=== PATIENT | male | born 1945 | race Caucasian/White ===

== ENCOUNTER 2019-03-15 09:24 | Outpatient (CLI) | payer OTHER ==
[~2019-03-15 09:24] MED LIST: COZAAR25 MG PO; GABAPENTIN600 MG PO; ZOCOR40 MG PO
== END 2019-03-15 09:28 | disposition home or self-care (01) ==
LOC: SONOGRAMA 09:24
DX: E04.1 Nontoxic single thyroid nodule (principal)

== ENCOUNTER 2022-01-26 10:00 | Inpatient (IN) | payer OTHER ==
[~2022-01-26] VITALS: Ht 170.2 cm; Wt 72.6 kg
== END 2022-02-01 19:41 | disposition home or self-care (01) | DRG 330 ==
LOC: SURG 01-28 07:54 → O/R 01-28 07:54 → SURH 01-28 10:00 → SURG 01-28 15:14 → SURH 01-28 18:00 → SURG 02-01 19:41
PROVIDERS: Surgery; ADMIT Surgery; ATTEND Surgery
PROC: 0WQF0ZZ Repair Abdominal Wall, Open Approach (ICD-10-PCS; 2022-01-28)
PROC: 0D1N0Z4 Bypass Sigmoid Colon to Cutaneous, Open Approach (ICD-10-PCS; principal; 2022-01-28 18:00)
PROC: 0DTN0ZZ Resection of Sigmoid Colon, Open Approach (ICD-10-PCS; 2022-01-28 18:00)
DX: K94.09 Other complications of colostomy (principal); K43.0 Incisional hernia with obstruction, without gangrene; K43.3 Parastomal hernia with obstruction, without gangrene; Z20.822 Contact with and (suspected) exposure to COVID-19

== ENCOUNTER 2022-11-25 09:45 | Inpatient (IN) | payer OTHER ==
[~2022-11-25] VITALS: Ht 177.8 cm; Wt 63.5 kg
[2022-11-25 11:59] LABS: URINE APPEARANCE Clear; URINE BILIRRUBIN Negative (NEGATIVE); URINE BLOOD Negative; URINE COLOR Yellow; URINE GLUCOSE Negative (NEGATIVE); URINE LEUKOCYTE Trace; URINE NITRATE Negative; URINE PROTEIN Negative (NEGATIVE); URINE UROBILINOGEN 0.2 E.U./dl
[2022-11-25 12:01] LABS: HEMATOCRIT 47.2 % (39.0-48.0); HEMOGLOBIN 16.3 g/dL (13-16.00); MEAN CELL VOLUME 88.2 fL (80.0-100.00); MEAN CORPUSCULAR HEMOGLOBIN 30.4 pg (27.00-32.0); MEAN CORPUSCULAR HGB CONC 34.5 g/dl (32.0-36.0); PLATELET COUNT 156 K/uL (150-450); RED BLOOD COUNT 5.35 M/uL (4.00-6.00); RED CELL DISTRIBUTION WIDTH 13.7 % (11.5-14.5)
[2022-11-25 12:03] LABS: URINE BACTERIA 7.5 uL (0.0-1933); URINE EPITHELIAL CELLS 6.4 uL (0.0-38.8); URINE WBC 19.1 uL (0.0-23.2)
[2022-11-25 12:25] LABS: CALCIUM 9.7 mg/dL (8.5-10.1); CREATININE SERUM 1.17 mg/dL (0.70-1.30); GFR 60.61; POTASSIUM 4.92 mEq/L (3.5-5.1)
[2022-11-25 12:28] LABS: INR 1.02; PARTIAL THROMBOPLASTIN TIME 33.1 SECONDS (22.0-34.0); PROTHROMBIN TIME 10.7 SECONDS (9.0-11.5)
[2022-12-03 04:29] LABS: HEMATOCRIT 39.4 % (39.0-48.0); HEMOGLOBIN 13.7 g/dL (13-16.00); MEAN CELL VOLUME 87.7 fL (80.0-100.00); MEAN CORPUSCULAR HEMOGLOBIN 30.4 pg (27.00-32.0); MEAN CORPUSCULAR HGB CONC 34.7 g/dl (32.0-36.0); RED CELL DISTRIBUTION WIDTH 13.5 % (11.5-14.5)
[2022-12-03 04:32] LABS: PLATELET COUNT 128 K/uL (150-450)
[2022-12-03 04:47] LABS: CALCIUM 7.9 mg/dL (8.5-10.1); CREATININE SERUM 0.99 mg/dL (0.70-1.30); GFR 73.5; MAGNESIUM 1.8 mg/dL (1.8-2.4); PHOSPHOROUS 3.1 mg/dL (2.5-4.9); POTASSIUM 4.48 mEq/L (3.5-5.1)
[2022-12-04] MEDS ORDERED: MIRALAX17 GM PO (11:12)
[2022-12-04] MEDS ORDERED: TYLENOL ARTHRI650 MG PO (11:12)
[2022-12-04] MEDS ORDERED: TRAMADOL HCL50 MG PO (11:12)
[2022-12-04] MEDS ORDERED: KETO10TA2 PO (11:12)
== END 2022-12-06 17:58 | disposition home or self-care (01) | DRG 337 ==
LOC: SURH 12-02 09:45 → O/R 12-02 09:51 → SURH 12-02 10:30
PROVIDERS: Surgery; ADMIT Surgery; ATTEND Surgery
PROC: 0DNW4ZZ Release Peritoneum, Percutaneous Endoscopic Approach (ICD-10-PCS; principal; 2022-12-02 10:30)
PROC: 0WUF4JZ Supplement Abdominal Wall with Synthetic Substitute, Percutaneous Endoscopic Approach (ICD-10-PCS; 2022-12-02 10:30)
DX: K43.5 Parastomal hernia without obstruction or gangrene (principal); K66.0 Peritoneal adhesions (postprocedural) (postinfection); K59.00 Constipation, unspecified; Z93.3 Colostomy status